=== PATIENT | female | born 1955 | race Caucasian/White ===

== ENCOUNTER → 2017-02-09 | Outpatient (CLI) | payer OTHER ==
[~2017-02-09] MED LIST: ASPI-483 PO; CALC-587 PO; CARV3.1232 PO; FISH1CAP49 PO; LEVO50TA69 PO; LORA-358 PO; LOVA10TA45 PO; MAXIDE; NIAC50TA15 PO; OMEG500C7 PO; POTA20TA68 PO
== END ==
LOC: WC.BC 08:22
DX: Z12.31 Encounter for screening mammogram for malignant neoplasm of breast (principal)